=== PATIENT | male | born 1985 | race Caucasian/White ===

== ENCOUNTER 2022-04-27 14:00 | Inpatient (IN) | payer OTHER ==
[~2022-04-27] VITALS: Ht 185.4 cm; Wt 159.7 kg
[2022-04-27 14:03] VITALS: BP_SYST 142
--- NOTE | 2022-04-27 14:09 | NUR ---
Placed in room [address] light repairer helper, blood pressure machine and pulse oximeter. To gown for exam. Side rails up. Report given to DAPHNE MA.
--- NOTE | 2022-04-27 14:20 | NUR ---
PT BIBA AWAKE AND ALERT, AO X4. NO SOB OR DISTRESS. PT CAME TO ER BECAUSE HE MISSED HIS DIALYSIS APPOINTMENT. PT STATES THAT HE HAS DIALYSIS [id number]. PT STATES THE LAST TIME HE HAD DIALYSIS WAS ON SATURDAY. PT DENIES PAIN, N/V.
--- NOTE | 2022-04-27 14:22 | NUR ---
MD DR ZAMORA AT BEDSIDE
[2022-04-27 15:04] LABS: BASOPHILS # (AUTO) 0.1 K/uL (0.0-0.2); BASOPHILS % (AUTO) 0.9 % (0.0-2.0); EOSINOPHILS # (AUTO) 0.2 K/uL (0.0-0.4); EOSINOPHILS % (AUTO) 2.3 % (0.0-4.0); HEMOGLOBIN 10.7 g/dL (14.0-18.0); LYMPHOCYTES # (AUTO) 0.5 K/uL (1.0-5.5); LYMPHOCYTES % (AUTO) 4.6 % (20.5-51.5); MEAN CORPUSCULAR HEMOGLOBIN 26 pg (27-31); MEAN CORPUSCULAR HGB CONC 32 % (32-36); MEAN CORPUSCULAR VOLUME 81 fL (79.0-98.0); MONOCYTES # (AUTO) 0.7 K/uL (0.0-1.0); MONOCYTES % (AUTO) 7.3 % (1.7-9.3); NEUTROPHILS # (AUTO) 8.6 K/uL (1.8-7.7); NEUTROPHILS % (AUTO) 84.9 % (40.0-70.0); PLATELET COUNT (AUTO) 389 K/uL (130-430); RED CELL DISTRIBUTION WIDTH 17.8 % (9.0-15.0); WHITE BLOOD COUNT (AUTO) 10.1 K/uL (4.8-10.8)
[2022-04-27 15:05] LABS: GLUCOSE 105 mg/dL (70-99)
[2022-04-27 15:14] LABS: ALANINE AMINOTRANSFERASE 21 U/L (12-78); ASPARTATE AMINOTRANSFERASE 30 U/L (10-37); TOTAL BILIRUBIN 0.7 mg/dL (0.0-1.0)
[2022-04-27] MEDS ORDERED: DILTIAZEM HCL 60 MG TABLET PO ONE (15:15)
[2022-04-27] MEDS ORDERED: dilTIAZem HCL IVP 5 MG/ML VIAL IVP ONE (15:15)
[2022-04-27 15:54] LABS: ANION GAP 11 (5-15); CALCIUM 9.3 mg/dL (8.4-11.0); CHLORIDE 102 mmol/L (98-107); CREATININE 5.67 mg/dL (0.55-1.30); UREA NITROGEN, BLOOD 85 mg/dL (8-21)
[2022-04-27 15:58] LABS: GFR AFRICAN AMERICAN 15 mL/min (>90)
[2022-04-27] MEDS ORDERED: FERR-69 PO (16:29)
[2022-04-27] MEDS ORDERED: FURO-150 PO (16:29)
[2022-04-27] MEDS ORDERED: APIX5TAB PO (16:29)
[2022-04-27] MEDS ORDERED: INSU100V SQ (16:29)
[2022-04-27] MEDS ORDERED: ACET325T PO (16:29)
[2022-04-27] MEDS ORDERED: COR25 PO (16:29)
[2022-04-27] MEDS ORDERED: HYDR-4037 PO (16:29)
[2022-04-27] MEDS ORDERED: ZOLP5TAB2 PO (16:29)
[2022-04-27] MEDS ORDERED: ONDA4TAB55 PO (16:29)
[2022-04-27] MEDS ORDERED: DOCU250C14 PO (16:29)
[2022-04-27] MEDS ORDERED: VITD2000 PO (16:29)
[2022-04-27] MEDS ORDERED: LOSA50TA3 PO (16:29)
[2022-04-27] MEDS ORDERED: HYDR-3917 PO (16:29)
--- NOTE | 2022-04-27 16:29 | NUR ---
ADAdmit bed requested Patient will be admitted to care of . Admitted to TELE unit. Diagnosis FLUID OVERLOAD Inpatient (Yes or No) YES Observation (Yes or No) NO Orientation concerns or request close to nursing station (Yes or No) NO Covid Status NEG On vent or bipap NO Isolation requirements NO Needs a sitter NO From Home (Yes or if No enter name of facility) [facility] Requires Dialysis (Yes or No) YES Med Rec Completed (Yes of No) YES
--- NOTE | 2022-04-27 16:34 | NUR ---
PER PATIENTS INSURANCE FAXED OVER PACKET TO [facility] AFTER RECEIEVING AUTHORZATION TO ADMIT [phone]
--- NOTE | 2022-04-27 17:51 | NUR ---
Placed in room 07 . Placed on night monitor, blood pressure machine and pulse oximeter. To gown for exam. Side rails up.
[2022-04-27] MEDS ORDERED: NALOXONE HCL 0.4 MG/ML AMP (NARCAN) IVP PRN (19:00)
[2022-04-27] MEDS ORDERED: hydrALAZINE HCL 10 MG TABLET PO SCH (19:00)
[2022-04-27] MEDS ORDERED: ZOLPIDEM TARTRATE 5 MG TABLET PO PRN (19:00)
[2022-04-27] MEDS ORDERED: ONDANSETRON HCL 4 MG/2 ML VIAL IVP PRN (19:00)
[2022-04-27] MEDS ORDERED: HYDROcodone/ACETAMIN 5-325 MG TAB (NORCO/ VICODIN) PO PRN (19:00)
[2022-04-27] MEDS ORDERED: ACETAMINOPHEN 325 MG TABLET PO PRN (19:00)
[2022-04-27] MEDS ORDERED: INSULIN REGULAR, HUMAN 100 UNITS/ML, 3 ML VIAL (humuLIN R) SUBCUT PRN (19:00)
--- NOTE | 2022-04-27 19:26 | NUR ---
Pt in bed resting with no s/s of distress. A&Ox4. VSS. Currently receiving dialysis. Dialysis nurse at bedside. Pt connected to cardia monitor. Bed in lowest position. Waiting for tele bed, covid neg.
--- NOTE | 2022-04-27 20:15 | NUR ---
Waiting for pt to complete dialysis to transport pt to floor.
[2022-04-27] MEDS ORDERED: NON-FORMULARY MEDICATION (Ferrous Sulfate 325 MG) PO SCH (21:00)
[2022-04-27] MEDS: FUROSEMIDE 20 MG TABLET PO SCH (21:00)
[2022-04-27] MEDS ORDERED: NON-FORMULARY MEDICATION (Apixaban (Eliquis) 5 MG) PO SCH (21:00)
--- NOTE | 2022-04-27 22:10 | NUR ---
Dialysis complete and 2L of fluids were removed.
--- NOTE | 2022-04-27 23:10 | NUR ---
Patient will be admitted to care of Dr. Rollins. Admitted to TELE unit. Will go to room 123A. Belongings list completed. Complete and up to date summary report printed. SBAR report to be given at bedside with opportunity for questions.
--- NOTE | 2022-04-27 23:20 | NUR ---
ADMISSION NOTE Received patient from ER via gurney by Carla- TIFFANY RN Patient admitted with diagnosis of fluid overload. Patient is awake, alert, oriented X 4. Patient oriented to hospital room, call light, toileting, pain management and safety-teach back done. Patient informed that I (Estrellita) will be his nurse and that their room number is 134-A. Personal belongings checked and Belongings List documented. -Prior put a telemetry box on pt, confirmed with Itzel-MT of pt's name, , ID number, and telemetry box number. Pt has hemodialysis access of rt chest wall, 2L removed per Carla's statement. Skin intact. Pt stated, " I can't walk anymore." Saline elsy or wrist # 22 patent after flushed well w/ NS, drsg cdi. Dustin lower extremities, rt lower extrem is more swollen than left lower extrem elevates with pillows. All safety measures in place, side rails x2,Call light within reach. Will ask MD to order PT evaluation. Cont to monitor pt.
[2022-04-27 23:22] VITALS: BP_SYST 110
[2022-04-27 23:34] VITALS: BP_SYST 110
[2022-04-27] MEDS: CARVEDILOL 25 MG TABLET (COREG) PO SCH (23:43)
[2022-04-27] MEDS: FERROUS SULFATE 325 MG TABLET.DR PO SCH (23:43)
[2022-04-27] MEDS: APIXABAN 2.5 MG TABLET PO SCH (23:44)
--- NOTE | 2022-04-28 03:40 | NUR ---
ROUNDS; -Pt is asleep. No s/s any chest pain,pain, N &V, sob,or any acute distress noted. Call light w/in reach. Cont to monitor p
--- NOTE | 2022-04-28 05:58 | NUR ---
ROUNDS;BS=88, NO SSI COVERAGE, GAVE 2 BOTTLES OF ORANGE JUICE UPON PT'S REQUEST. Pt denies any chest pain,pain, N &V, sob,or any acute distress. Call light w/in reach. Cont to monitor pt
--- NOTE | 2022-04-28 06:32 | NUR ---
CLOSING NOTES; -Pt is resting in bed comfortably. Pt denies any chest pain,pain,sob, or any acute distress. Generalized weakness. All safety measures in place. Will endorse to next nurse to cont care.
[2022-04-28 07:35] VITALS: BP_SYST 117
[2022-04-28 08:05] LABS: BASOPHILS # (AUTO) 0.1 K/uL (0.0-0.2); BASOPHILS % (AUTO) 0.8 % (0.0-2.0); EOSINOPHILS # (AUTO) 0.2 K/uL (0.0-0.4); EOSINOPHILS % (AUTO) 2.7 % (0.0-4.0); HEMATOCRIT 29.5 % (36-54); HEMOGLOBIN 9.5 g/dL (14.0-18.0); LYMPHOCYTES # (AUTO) 0.5 K/uL (1.0-5.5); LYMPHOCYTES % (AUTO) 7.1 % (20.5-51.5); MEAN CORPUSCULAR HEMOGLOBIN 26 pg (27-31); MEAN CORPUSCULAR HGB CONC 32 % (32-36); MEAN CORPUSCULAR VOLUME 79 fL (79.0-98.0); MONOCYTES # (AUTO) 0.7 K/uL (0.0-1.0); MONOCYTES % (AUTO) 8.8 % (1.7-9.3); NEUTROPHILS # (AUTO) 6.1 K/uL (1.8-7.7); NEUTROPHILS % (AUTO) 80.6 % (40.0-70.0); PLATELET COUNT (AUTO) 273 K/uL (130-430); RED BLOOD CELL COUNT(AUTO) 3.73 MIL/uL (4.2-6.2); RED CELL DISTRIBUTION WIDTH 17.4 % (9.0-15.0); WHITE BLOOD COUNT (AUTO) 7.6 K/uL (4.8-10.8)
[2022-04-28] MEDS: LOSARTAN POTASSIUM 50 MG TABLET (COZAAR) PO SCH (08:05)
[2022-04-28] MEDS: CHOLECALCIFEROL (VITAMIN D3) 2,000 UNIT TABLET PO SCH (08:21)
[2022-04-28] MEDS: DOCUSATE SODIUM 250 MG CAPSULE PO SCH (08:21)
[2022-04-28] MEDS: FERROUS SULFATE 325 MG TABLET.DR PO SCH ×2 (08:21→20:48)
[2022-04-28] MEDS: NEPHROVITE, (FOLIC ACID/VITAMIN B COMP W-C 1 TAB) PO SCH (08:21)
[2022-04-28] MEDS: CARVEDILOL 25 MG TABLET (COREG) PO SCH (08:22)
[2022-04-28] MEDS: FUROSEMIDE 20 MG TABLET PO SCH ×2 (08:22→21:00)
[2022-04-28] MEDS: APIXABAN 2.5 MG TABLET PO SCH ×2 (08:23→20:48)
[2022-04-28 08:30] LABS: CREATININE 3.77 mg/dL (0.55-1.30)
--- NOTE | 2022-04-28 12:30 | NUR ---
CM: Informed dr. Kim with dr Foss's progress note info that the pt can be dc back to snf after dialysis today. Dr Strickland stated " ok " .
[2022-04-28] MEDS ORDERED: HEPARIN SODIUM,PORCINE 5,000 UNITS/ML VIAL MC ONE (14:00)
[2022-04-28 14:21] VITALS: BP_SYST 136
--- NOTE | 2022-04-28 15:18 | NUR ---
CM: SNF: s/w Milad, admission nurse at [facility], the pt is on be hold and ok accepting pt back to room 11B, tel [phone]. Called [facility] # [phone] for ambulance auth: corwin Singletary, will email CM to call me back.
--- NOTE | 2022-04-28 17:41 | NUR ---
BEFORE GOING HOME FOR THE DAY,JANIE CHA INSTRUCTED ME TO FOLLOW UP THE AMBULANCE AUTH WITH [facility]. I WAITED FOR SOMEONE TO SUSTAINABLE DEVELOPMENT POLICY ANALYST THE PHONE BUT UNFORTUNATELY NOBODY PICKED UP THE CALL
--- NOTE | 2022-04-28 18:44 | NUR ---
PT HAS BEEN STABLE THE WHOLE SHIFT, NO C/O PAIN, NO DISTRESS, NO FEVER. PT HAD HD 3000 ML OUT. PT HAS DC BACK TO SNF ORDER, NEEDS AUTH FOR AMBULANCE TRANSPORT FROM PT'S INSURANCE. PT IS AWARE.
[2022-04-28 18:47] VITALS: BP_SYST 146
[2022-04-28 19:40] VITALS: BP_SYST 108
--- NOTE | 2022-04-28 19:40 | NUR ---
PM ASSESSMENT; -Pt is a/ox4, laying in comfortably. Pt denies any chest pain,pain,sob, or any acute distress. Generalized weakness. Rt wrist #22 patent, no s/s any infiltration. Discussed poc, all safety measures, pt verbalized understanding. Side rails x2, All safety measures in place. Cont to monitor pt.
--- NOTE | 2022-04-28 21:34 | NUR ---
[facility] AFTER HOURS CALLED [phone] SPOKE WITH RAHEL AND INFORMED HER THAT WE NEED A AUTH FOR TRANSFER PT BACK TO SNF. GAVE HER INFO AND SHE SAID SHE WILL HAVE RASHID CALL ME BACK .
--- NOTE | 2022-04-28 21:39 | NUR ---
ARNOL MIKE CALLED BACK AND SAID I NEED TO CALL [facility]
--- NOTE | 2022-04-28 21:49 | NUR ---
[facility] HERNANDEZ SPOKE WITH AMADA HARDEN TUSCOLA AND SHE SAID THEY USE [facility]
--- NOTE | 2022-04-28 21:51 | NUR ---
[facility] SPOKE WITH ANAHI @ [phone] TO SET UP BARIATRIC GURNEY TO GO BACK TO [facility] THEY SAID THEY WILL NOT BE ABLE TO PENSION FUND MANAGER TILL 04/29/22 IN THE AFTERNOON. I INFORMED HIM THAT IS FINE AND TO PLEASE SET UP. THEY GAVE ME TRIP AUTH [id number] . THEY WILL HAVE SOMEONE FROM [facility] CALL BACK IN MORNING WITH ACCURATE ETA RIGHT NOW THEY ARE HOPING FOR BETWEEN 10AM -12 NOON. ON 04/29/22. FOR A BARIATRIC GURNEY.
--- NOTE | 2022-04-28 21:55 | NUR ---
ROUNDS; -Pt is resting in bed comfortably. Pt denies any chest pain,pain, N &V, sob,or any acute distress. Alll safety measures in place, side rails x2, Call light w/in reach. Cont to monitor p
--- NOTE | 2022-04-28 23:20 | NUR ---
NOTES; PAGED Vineet CORONADO REGARDING PT IS UNABLE TO BE DISCHARGE TONIGHT UNTIL TOMORROW AND NEED AN ORDER TO HOLD DISCHARGE TONIGHT. WAITING MD TO RETURN CALLBACK
--- NOTE | 2022-04-28 23:42 | NUR ---
NOTES; REGARDING HOLD DISCHARGE TONIGHT -NOTIFIED Vineet CORONADO REGARDING PT IS UNABLE TO BE DISCHARGE TONIGHT UNTIL TOMORROW D/T NEEDS BARIATRIC GURNEY. stated, " who discharge this patient?" It was pillowcase maker who put discharge order. stated, " anyways, just discharge patient back to SNF when proper equipment is available and ok to hold discharge tonight." Hold discharge tonight per . Jan-Charge nurse informed and awared.
[2022-04-29 00:24] VITALS: BP_SYST 135
[2022-04-29] MEDS: CARVEDILOL 25 MG TABLET (COREG) PO SCH ×2 (00:27→08:18)
--- NOTE | 2022-04-29 01:40 | NUR ---
ROUNDS; -Pt is resting in bed comfortably. Pt denies any chest pain,pain, N &V, sob,or any acute distress. Updated pt regarding hold discharge tonight until tomorrow when proper equipment transport available, pt verbalized understanding. All safety measures in place, side rails x2, Call light w/in reach. Cont to monitor pt.
--- NOTE | 2022-04-29 04:11 | NUR ---
ROUNDS; -Pt is resting in bed comfortably. No s/s any chest pain,pain, N &V, sob,or any acute distress noted. All safety measures in place, side rails x2, Call light w/in reach. Cont to monitor pt.
--- NOTE | 2022-04-29 06:26 | NUR ---
CLOSING NOTES; -Pt is resting in bed comfortably. Pt denies any chest pain,pain,sob, or any acute distress. Generalized weakness. IV site of rt hand paent drsg cdi. All safety measures in place. Pt is stable condition. Will endorse to next nurse to cont care.
[2022-04-29 07:53] LABS: BASOPHILS # (AUTO) 0.1 K/uL (0.0-0.2); BASOPHILS % (AUTO) 0.7 % (0.0-2.0); EOSINOPHILS # (AUTO) 0.2 K/uL (0.0-0.4); EOSINOPHILS % (AUTO) 2.4 % (0.0-4.0); HEMATOCRIT 30.2 % (36-54); HEMOGLOBIN 9.8 g/dL (14.0-18.0); LYMPHOCYTES # (AUTO) 0.6 K/uL (1.0-5.5); LYMPHOCYTES % (AUTO) 7.5 % (20.5-51.5); MEAN CORPUSCULAR HEMOGLOBIN 26 pg (27-31); MEAN CORPUSCULAR HGB CONC 32 % (32-36); MEAN CORPUSCULAR VOLUME 80 fL (79.0-98.0); MONOCYTES # (AUTO) 0.9 K/uL (0.0-1.0); NEUTROPHILS # (AUTO) 6.1 K/uL (1.8-7.7); NEUTROPHILS % (AUTO) 78.4 % (40.0-70.0); PLATELET COUNT (AUTO) 250 K/uL (130-430); RED CELL DISTRIBUTION WIDTH 17.3 % (9.0-15.0); WHITE BLOOD COUNT (AUTO) 7.8 K/uL (4.8-10.8)
[2022-04-29 08:04] VITALS: BP_SYST 121
[2022-04-29 08:06] LABS: CALCIUM 9.2 mg/dL (8.4-11.0); CREATININE 3.5 mg/dL (0.55-1.30)
--- NOTE | 2022-04-29 08:07 | NUR ---
[employer] CALLED AND GAVE ETA OF 11AM TRAFFIC OBSERVER FOR THIS PT. PT MADE AWARE.
[2022-04-29] MEDS: CHOLECALCIFEROL (VITAMIN D3) 2,000 UNIT TABLET PO SCH (08:16)
[2022-04-29] MEDS: DOCUSATE SODIUM 250 MG CAPSULE PO SCH (08:16)
[2022-04-29] MEDS: NEPHROVITE, (FOLIC ACID/VITAMIN B COMP W-C 1 TAB) PO SCH (08:16)
[2022-04-29] MEDS: FERROUS SULFATE 325 MG TABLET.DR PO SCH (08:16)
[2022-04-29] MEDS: APIXABAN 2.5 MG TABLET PO SCH (08:17)
[2022-04-29] MEDS: LOSARTAN POTASSIUM 50 MG TABLET (COZAAR) PO SCH (08:17)
[2022-04-29] MEDS: FUROSEMIDE 20 MG TABLET PO SCH (08:18)
[2022-04-29 09:42] VITALS: BP_SYST 114
--- NOTE | 2022-04-29 09:43 | NUR ---
A follow up call was made with [employer] re: Bariatric dianerfranc by ambulance back to [facility]. Spoke to Sarbjit, and confirmed for 1100 apple picker by [facility] ([phone]).
--- NOTE | 2022-04-29 11:04 | NUR ---
PT HAS BEEN STABLE , NO C/O PAIN, NO SOB, NO DISTRESS. VITALS WNL NO FEVER. REPORT GIVEN TO AMBULANCE STAFF, AND [facility] SOTO C/O DOUGIE MA. PT WILL BE UNDER THE CARE OF DR MURO.
--- NOTE | 2022-04-29 11:18 | NUR ---
D/C Patient Patient given medication reconciliation form and D/C instructions. Exit Care provided. Patient verbalized understanding. MD discussed with patient the results and treatment provided. Ambulatory with steady gait for discharge to home. Patient in stable condition, ID band removed. IV catheter removed, intact and dressing applied, no active bleeding. Patient discharged to [facility] as ordered. Patient educated on pain management. All belongings sent with patient.
[2022-04-29 11:30] VITALS: BP_SYST 134
== END 2022-04-29 11:15 | DRG 425 ==
LOC: SED 14:00 → STU 17:40
PROVIDERS: ADMIT Family Medicine; ATTEND Family Medicine
PROC: 5A1D70Z Performance of Urinary Filtration, Intermittent, Less than 6 Hours Per Day (ICD-10-PCS; principal; 2022-04-27)
PROC: 5A1D70Z Performance of Urinary Filtration, Intermittent, Less than 6 Hours Per Day (ICD-10-PCS; 2022-04-28)
DX: E87.70 Fluid overload, unspecified (principal); D68.2 Hereditary deficiency of other clotting factors; N17.9 Acute kidney failure, unspecified; E44.1 Mild protein-calorie malnutrition; I12.0 Hypertensive chronic kidney disease with stage 5 chronic kidney disease or end stage renal disease; E11.22 Type 2 diabetes mellitus with diabetic chronic kidney disease; D64.9 Anemia, unspecified; E87.5 Hyperkalemia; N18.6 End stage renal disease; I49.9 Cardiac arrhythmia, unspecified; Z20.822 Contact with and (suspected) exposure to COVID-19; I89.0 Lymphedema, not elsewhere classified; Z99.2 Dependence on renal dialysis
CPT/HCPCS: 36415; 71045; 80048; 80053; 82962; 83605; 84484; 85025; 87081; 90935; 90937; 93005; 96374; 99285; G0378; J1644; J3490; J7030